=== PATIENT | male | born 1990 | race Caucasian/White ===

== ENCOUNTER 2020-01-31 18:14 | Emergency (ER) | payer OTHER ==
[~2020-01-31] VITALS: Ht 162.6 cm; Wt 77.0 kg
--- NOTE | 2020-01-31 18:25 | PHYS DOC ---
Past History Past Medical History: No Pertinent History Past Surgical History: No Surgical History Smoking: Non-smoker Alcohol Use: Rarely Drug Use: None General Adult EDM: Chief Complaint: FOOT INJURY PAIN HPI: HPI: Patient is a 29 year old male who presents for evaluation of right foot pain after injury. Patient states he kicked a car door about noon today. Patient has pain with bearing weight but there is no visible signs of bruising, swelling or deformity present. Patient denies other injuries. Patient has no pain to his ankle, knee or hip on the affected side. Review of Systems: Review of Systems: Constitutional: Denies fever or chills Eyes: Denies change in visual acuity HENT: Denies nasal congestion or sore throat Respiratory: Denies cough or shortness of breath Cardiovascular: Denies chest pain or edema GI: Denies abdominal pain, nausea, vomiting, bloody stools or diarrhea : Denies dysuria Musculoskeletal: Denies back pain or joint pain Integument: Denies rash Neurologic: Denies headache, focal weakness or sensory changes Endocrine: Denies polyuria or polydipsia Lymphatic: Denies swollen glands Psychiatric: Denies depression or anxiety Heart Score: Risk Factors: Risk Factors: DM, Current or recent (<one month) smoker, HTN, HLP, family history of CAD, obesity. Risk Scores: Score 0 - 3: 2.5% MACE over next 6 weeks - Discharge Home Score 4 - 6: 20.3% MACE over next 6 weeks - Admit for Clinical Observation Score 7 - 10: 72.7% MACE over next 6 weeks - Early Invasive Strategies Physical Exam: PE: Constitutional: Well developed, well nourished, no acute distress, non-toxic appearance. [] HENT: Normocephalic, atraumatic, bilateral external ears normal, oropharynx moist, no oral exudates, nose normal. [] Eyes: PERRL, EOMI, conjunctiva normal, no discharge. [] Neck: Normal range of motion, no tenderness, supple, no stridor. [] Cardiovascular:Heart rate regular rhythm, no murmur [] Lungs & Thorax: Bilateral breath sounds clear to auscultation [] Abdomen: Bowel sounds normal, soft, no tenderness, no masses, no pulsatile masses. [] Skin: Warm, dry, no erythema, no rash. [] Back: No tenderness, no CVA tenderness. [] Extremities: Tender to medial aspect right foot and third through fifth toes, no cyanosis, no clubbing, ROM intact, no edema. No bruising, no erythema, no deform [] Neurologic: Alert and oriented X 3, normal motor function, normal sensory function, no focal deficits noted. [] Psychologic: Affect normal, judgement normal, mood normal. [] EKG: EKG: [] Radiology/Procedures: Radiology/Procedures: [address] [id number] IMAGING REPORT Signed PATIENT: CRISTA BIRD ACCOUNT: [id number] : 1990 LOCATION: ER AGE: 29 SEX: M EXAM STATUS: REG ER ORD. PHYSICIAN: TISHA PEREZ DO REASON: Right foot pain, contusion, injury PROCEDURE: FOOT RIGHT 3V RIGHT FOOT AP LATERAL OBLIQUE Clinical Indication: Reason: Right foot pain, contusion, injury / Spl. Instructions: / History: Comparison: None. Findings: There is no acute fracture or dislocation. The bony alignment is normal. Mineralization is normal. No bony erosion. There is no soft tissue abnormality. IMPRESSION: No acute fracture. Electronically signed by: Jose Alejandro Mejia MD (01/31/2020 7:13 PM) [facility] DICTATED AND SIGNED BY: JOSE ALEJANDRO MEJIA MD DATE: 01/31/201912 CC: TISHA PEREZ DO; [facility] ~ [] Course & Med Decision Making: Course & Med Decision Making Pertinent Labs and Imaging studies reviewed. (See chart for details) [] Dragon Disclaimer: Dragbernie Disclaimer: This electronic medical record was generated, in whole or in part, using a voice recognition dictation system. Departure Departure: Impression: Primary Impression: Contusion of right foot, initial encounter Disposition: 01 HOME/RESIDENCE PRIOR TO ADM Condition: STABLE Referrals: [facility] (PCP) Patient Instructions: Foot Contusion Additional Instructions: Rest, ice and elevate the injured right foot. Take [id number] ibuprofen as directed. Wear Ortho shoe for the next several days to help protect your foot Justification of Admission: Justification of Admission: Justification of Admission Dx: N/A TISHA PEREZ DO Jan 31, 2020 18:25
[2020-01-31 18:35] VITALS: BP 129/82
--- NOTE | 2020-01-31 19:16 | RAD ---
RIGHT FOOT AP LATERAL OBLIQUE Clinical Indication: Reason: Right foot pain, contusion, injury / Spl. Instructions: / History: Comparison: None. Findings: There is no acute fracture or dislocation. The bony alignment is normal. Mineralization is normal. No bony erosion. There is no soft tissue abnormality. IMPRESSION: No acute fracture. Electronically signed by: Jose Alejandro Mejia MD (01/31/2020 7:13 PM) [facility]
== END 2020-01-31 19:30 | disposition home or self-care (01) ==
LOC: ER 18:14
DX: S90.31XA Contusion of right foot, initial encounter (principal); W22.8XXA Striking against or struck by other objects, initial encounter; Y93.89 Activity, other specified; Y92.89 Other specified places as the place of occurrence of the external cause; Y99.8 Other external cause status
CPT/HCPCS: 73630; 99283